=== PATIENT | female | born 1950 | race Two or more races ===

== ENCOUNTER 2018-03-28 10:26 | Outpatient (CLI) | payer OTHER | END 2018-03-28 11:00 | disposition home or self-care (01) | LOC: NUCLEAR 10:26 | DX: H35.029 Exudative retinopathy, unspecified eye (principal); R07.89 Other chest pain ==

== ENCOUNTER 2018-10-11 07:43 | Outpatient (CLI) | payer OTHER | END 2018-10-11 10:11 | disposition home or self-care (01) | LOC: SONOGRAMA 07:43 | DX: E04.1 Nontoxic single thyroid nodule (principal) ==